=== PATIENT | male | born 1940 | race Caucasian/White ===

== ENCOUNTER → 2016-06-25 | Outpatient (CLI) | payer MEDICARE, BC ==
[2016-06-25 07:32] LABS: ALT 34 U/L (21-72); AST 22 U/L (17-59); Cholesterol 114 mg/dL (<200); HDL Cholesterol 45 mg/dL (40-60); Triglycerides 73 mg/dL (<150)
== END | disposition home or self-care (01) ==
LOC: LABWHC1 06:40
PROVIDERS: ATTEND Internal Medicine Interventional Cardiology
DX: E78.2 Mixed hyperlipidemia (principal)
CPT/HCPCS: 36415; 80061; 84450; 84460

== ENCOUNTER → 2017-01-19 | Outpatient (CLI) | payer MEDICARE, BC ==
[2017-01-19 08:03] LABS: ALT 26 U/L (21-72); AST 20 U/L (17-59); Alkaline Phosphatase 56 U/L (38-126); Anion Gap 7 mmol/L; Blood Urea Nitrogen 22 mg/dL (9-20); Calcium 9.1 mg/dL (8.4-10.2); Carbon Dioxide 27 mmol/L (22-30); Chloride 108 mmol/L (98-107); Cholesterol 116 mg/dL (<200); Glucose 94 mg/dL (74-99); HDL Cholesterol 42 mg/dL (40-60); Non-African American GFR(MDRD) >60 (>60 ml/min/1.73 sqM); Potassium 4.2 mmol/L (3.5-5.1); Sodium 142 mmol/L (137-145); Total Bilirubin 0.4 mg/dL (0.2-1.3); Total Protein 6.3 g/dL (6.3-8.2)
== END | disposition home or self-care (01) ==
LOC: LABWHC1 06:51
PROVIDERS: ATTEND Internal Medicine Interventional Cardiology
DX: E78.2 Mixed hyperlipidemia (principal)
CPT/HCPCS: 36415; 80053; 80061

== ENCOUNTER → 2017-11-16 | Outpatient (CLI) | payer MEDICARE, BC ==
[2017-11-16 08:44] LABS: ALT 32 U/L (21-72); AST 26 U/L (17-59); Cholesterol 120 mg/dL (<200); HDL Cholesterol 33 mg/dL (40-60); LDL Cholesterol,Calculated 54 mg/dL (0-99); Triglycerides 167 mg/dL (<150)
== END | disposition home or self-care (01) ==
LOC: LABWHC1 07:34
PROVIDERS: ATTEND Internal Medicine Interventional Cardiology
DX: E78.2 Mixed hyperlipidemia (principal)
CPT/HCPCS: 36415; 80061; 84450; 84460

== ENCOUNTER → 2018-06-13 | Outpatient (CLI) | payer MEDICARE ==
[2018-06-13 16:33] LABS: Albumin 4.3 g/dL (3.80-4.90); Albumin/Globulin Ratio 2.26 (1.60-3.17); Anion Gap 10.4 mmol/L (4.00-12.00); Calcium 9.2 mg/dL (8.7-10.3); Carbon Dioxide 26.6 mmol/L (21.6-31.8); Globulin 1.9 g/dL (1.6-3.3); LDL Cholesterol,Calculated 55.4 mg/dL (0.0-131.0); Total Bilirubin 0.6 mg/dL (0.2-1.2); Total Protein 6.2 g/dL (6.2-8.2); VLDL Calculation 27.6 mg/dL (5.00-40.00)
== END | disposition home or self-care (01) ==
LOC: LABWHC1 07:23
PROVIDERS: ATTEND Internal Medicine Interventional Cardiology
DX: E78.2 Mixed hyperlipidemia (principal)
CPT/HCPCS: 36415; 80053; 80061

== ENCOUNTER → 2019-01-05 | Outpatient (CLI) | payer MEDICARE ==
[2019-01-05 12:14] LABS: Chol/HDL Ratio 3.14; LDL Cholesterol,Calculated 56.8 mg/dL (0.0-131.0); VLDL Calculation 20.2 mg/dL (5.00-40.00)
== END | disposition home or self-care (01) ==
LOC: LABWHC1 07:12
PROVIDERS: ATTEND Nurse Practitioner Adult Health
DX: E78.2 Mixed hyperlipidemia (principal)
CPT/HCPCS: 36415; 80061; 84450; 84460

== ENCOUNTER → 2019-07-13 | Outpatient (CLI) | payer MEDICARE ==
[2019-07-13 17:13] LABS: African American GFR (CKD) 94.5 (60.0-200.0); Albumin 4.2 g/dL (3.80-4.90); Albumin/Globulin Ratio 1.83 (1.60-3.17); Anion Gap 9.4 mmol/L (4.00-12.00); Calcium 9.2 mg/dL (8.7-10.3); Carbon Dioxide 28.6 mmol/L (21.6-31.8); Chol/HDL Ratio 3.5; Globulin 2.3 g/dL (1.6-3.3); LDL Cholesterol,Calculated 65.2 mg/dL (0.0-131.0); Non-African American GFR(CKD) 81.5 (60.0-200.0); Potassium 4.5 mmol/L (3.5-5.5); Total Bilirubin 0.8 mg/dL (0.3-1.2); Total Protein 6.5 g/dL (6.2-8.2); VLDL Calculation 24.8 mg/dL (5.00-40.00)
== END | disposition home or self-care (01) ==
LOC: LABWHC1 08:02
PROVIDERS: ATTEND Nurse Practitioner Adult Health
DX: E78.2 Mixed hyperlipidemia (principal); I10 Essential (primary) hypertension
CPT/HCPCS: 36415; 80053; 80061

== ENCOUNTER → 2020-01-16 | Outpatient (CLI) | payer MEDICARE ==
[2020-01-16 15:18] LABS: Chol/HDL Ratio 3.32; LDL Cholesterol,Calculated 64.8 mg/dL (0.0-131.0); VLDL Calculation 23.2 mg/dL (5.00-40.00)
== END | disposition home or self-care (01) ==
LOC: LABWHC1 08:05
PROVIDERS: ATTEND Nurse Practitioner Adult Health
DX: E78.2 Mixed hyperlipidemia (principal)
CPT/HCPCS: 36415; 80061

== ENCOUNTER → 2020-07-11 | Outpatient (CLI) | payer MEDICARE ==
[2020-07-11 11:48] LABS: African American GFR (CKD) 73.6 (60.0-200.0); Albumin 4.4 g/dL (3.80-4.90); Albumin/Globulin Ratio 2.1 (1.60-3.17); Anion Gap 7.8 mmol/L (4.00-12.00); BUN/Creat Ratio 14.55 Ratio (12.00-20.00); Carbon Dioxide 29.2 mmol/L (21.6-31.8); Chol/HDL Ratio 3.43; Globulin 2.1 g/dL (1.6-3.3); LDL Cholesterol,Calculated 66.4 mg/dL (0.0-131.0); Non-African American GFR(CKD) 63.5 (60.0-200.0); Potassium 4.1 mmol/L (3.5-5.5); Total Bilirubin 0.6 mg/dL (0.3-1.2); Total Protein 6.5 g/dL (6.2-8.2); VLDL Calculation 23.6 mg/dL (5.00-40.00)
== END | disposition home or self-care (01) ==
LOC: LABWHC1 07:00
PROVIDERS: ATTEND Internal Medicine Interventional Cardiology
DX: E78.2 Mixed hyperlipidemia (principal)
CPT/HCPCS: 36415; 80053; 80061

== ENCOUNTER → 2020-10-16 | Outpatient (CLI) | payer MEDICARE ==
[2020-10-16 14:44] LABS: Chol/HDL Ratio 3.49; LDL Cholesterol,Calculated 68.2 mg/dL (0.0-131.0); VLDL Calculation 18.8 mg/dL (5.00-40.00)
== END | disposition home or self-care (01) ==
LOC: LABWHC1 06:55
PROVIDERS: ATTEND Nurse Practitioner Adult Health
DX: E78.2 Mixed hyperlipidemia (principal)
CPT/HCPCS: 36415; 80061; 84450; 84460

== ENCOUNTER → 2020-11-25 | Outpatient (CLI) | payer MEDICARE ==
--- NOTE | 2020-11-25 13:03 | CT ---
EXAMINATION TYPE: CT head without contrast CT angio head DATE OF EXAM: 11/25/2020 COMPARISON: 10/29/2015 HISTORY: 80-year-old male I62.9, Nontraumatic intracranial hemorrhage TECHNIQUE: Contiguous axial scanning of the head performed without and with IV Contrast, patient inje cted with 100 mL of Isovue 370. Coronal/sagittal MIP reconstructions performed. 3-D reconstructions g enerated on a dedicated independent workstation. CT DLP: 2317 mGycm Automated exposure control for dose reduction was used. FINDINGS: NONCONTRAST CT HEAD: Initial noncontrast images of the head are mildly limited by motion. Moderate patchy periventricular white matter hypodensities. There is slight 3 mm of prominence to the extra-axial space along the left lateral convexity, for exa mple, refer to axial image 34. Otherwise, no evidence for acute intracranial hemorrhage, acute ischemic change, mass, mass effect, o r midline shift. No effacement of cerebral sulci or basal subarachnoid cisterns. Osorio-white matter di fferentiation is maintained. CTA [place]: After contrast administration, we note a dominant right vertebral artery. The V4 segment left vertebr al artery becomes markedly hypoplastic after the ICA takeoff. Moderate uniform narrowing of the dista l third basilar artery. Otherwise, the vertebral and basilar arteries are patent. There are bilateral persistent origins of the posterior cerebral arteries and hypoplastic P1 se gments. Scattered mild atherosclerotic calcifications within the carotid siphons without any significant narr owing. No aneurysmal change. Dural venous sinuses are patent. The left transverse sinus is hypoplastic. Moderate mucosal thickening throughout the ethmoid air cells and trace within the sphenoid and fronta l sinuses. Mastoid air cells are well pneumatized. Visualized orbits and globes appear intact. IMPRESSION: 1. SLIGHT 3 MM OF PROMINENCE TO THE EXTRA-AXIAL SPACE ALONG THE LEFT LATERAL CONVEXITY, AXIAL IMAGE 3 4, APPEARS INCREASED FROM 2016. A TRACE CHRONIC SUBDURAL HEMATOMA VERSUS SUBDURAL HYGROMA IS DIFFICUL T TO EXCLUDE HERE. NO ACUTE INTRACRANIAL HEMORRHAGE OR OTHER ACUTE ABNORMALITY SEEN. 2. 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 3. ON CTA, THERE IS A DOMINANT RIGHT VERTEBRAL ARTERY AND PERSISTENT ORIGIN OF THE BILATERAL PO STERIOR CEREBRAL ARTERIES. THE UPPER THIRD BASILAR ARTERY SHOWS UNIFORM MODERATE NARROWING LIKELY ON A CONGENITAL BASIS. OTHERWISE, NO SIGNIFICANT STENOSIS, LARGE VESSEL INTRACRANIAL ARTERIAL OCCLUSION, OR ANEURYSMAL CHANGE IS SEEN. 4. MODERATE CHRONIC ETHMOID SINUS DISEASE. MILD WITHIN THE SPHENOID AND FRONTAL SINUSES.
== END | disposition home or self-care (01) ==
LOC: RADCTMAIN 10:23
PROVIDERS: ATTEND Psychiatry & Neurology Neurology
DX: I67.82 Cerebral ischemia (principal); J32.1 Chronic frontal sinusitis; J32.2 Chronic ethmoidal sinusitis; J32.3 Chronic sphenoidal sinusitis
CPT/HCPCS: 82565; 84520; 70496; 36415; Q9967

== ENCOUNTER → 2021-10-14 | Outpatient (CLI) | payer MEDICARE ==
[2021-10-14 10:59] LABS: ALT 19 U/L (10-49); AST 23 U/L (14-35); Chol/HDL Ratio 3.04 Ratio; LDL Cholesterol,Calculated 60.6 mg/dL (0.0-131.0); VLDL Calculation 18.58 mg/dL (5.00-40.00)
== END | disposition home or self-care (01) ==
LOC: LABWHC1 06:56
PROVIDERS: ATTEND Internal Medicine Interventional Cardiology
DX: E78.2 Mixed hyperlipidemia (principal)
CPT/HCPCS: 36415; 80061; 84450; 84460

== ENCOUNTER → 2022-01-22 | Outpatient (CLI) | payer MEDICARE ==
--- NOTE | 2022-01-22 10:41 | CT ---
EXAMINATION TYPE: CT angio head CT DLP: 2522 mGycm, Automated exposure control for dose reduction was used. DATE OF EXAM: 01/22/2022 10:28 AM COMPARISON: CT brain C-spine 10/29/2015. CLINICAL INDICATION:Male, 81 years old with history of I62.9 intracranial hemorrhage; PHH, Intracrani al hemorrhage TECHNIQUE: Axially acquired helical CT angiogram of the head was obtained before and after contrast a dministration utilizing 100 cc of Isovue-370 administered intravenously. Axial images are supplemente d with 3D reconstructions which were post-processed at an independent workstation. FINDINGS: Dental amalgam streak artifact which limits evaluation. No acute intraparenchymal hemorrhage or mass effect. Regions of low attenuation within the periventri cular white matter. Mild cerebral atrophy. The domingo-white junction is well differentiated. Cerebellum is unremarkable. Ventricular system is within normal limits. No abnormal extra-axial fluid collectio ns. No evidence of midline shift. No depressed skull fracture. Soft tissues are within normal limits. The mastoid air cells are clear. Mild scattered mucosal thickening of the ethmoid, sphenoid, maxilla ry sinuses. The ocular lenses are surgically absent. The visualized portions of the internal carotid arteries, middle cerebral arteries, anterior cerebral arteries, and posterior cerebral arteries are patent. The anterior communicating artery is hypoplast ic or absent. Mild atherosclerotic calcification of the cavernous portion of the bilateral internal c arotid arteries without significant stenosis. The basilar is patent. origin of the left WRAPPER SIZER. The left vertebral artery is hypoplastic but pat ent. The right vertebral artery is patent. IMPRESSION: 1. No evidence of high-grade stenosis or intracranial aneurysm. No acute intracranial hemorrhage. 2. Anterior commuting artery is hypoplastic or absent. 3. Hypoplastic appearance of the patent left vertebral artery. 4. Nonspecific white matter changes likely related to chronic small vessel ischemia.
== END | disposition home or self-care (01) ==
LOC: RADCTMAIN 08:15
PROVIDERS: ATTEND Psychiatry & Neurology Neurology
DX: R90.82 White matter disease, unspecified (principal); I62.9 Nontraumatic intracranial hemorrhage, unspecified
CPT/HCPCS: 82565; 84520; 70496; 36415; Q9967

== ENCOUNTER → 2022-07-17 | Outpatient (CLI) | payer MEDICARE ==
[2022-07-17 11:20] LABS: ALT 15 U/L (10-49); AST 19 U/L (14-35); African American GFR (CKD) 81.7 (60.0-200.0); Albumin 4.3 g/dL (3.8-4.9); Alkaline Phosphatase 70 U/L (41-126); BUN/Creat Ratio 19.56 Ratio (12.00-20.00); Blood Urea Nitrogen 19.5 mg/dL (9.0-27.0); Calcium 9.3 mg/dL (8.7-10.3); Carbon Dioxide 25.1 mmol/L (20.0-27.5); Chloride 106 mmol/L (96-109); Chol/HDL Ratio 2.64 Ratio; Globulin 2.2 g/dL (1.6-3.3); Glucose 97 mg/dL (70-110); LDL Cholesterol,Calculated 42.4 mg/dL (0.0-131.0); Non-African American GFR(CKD) 70.5 (60.0-200.0); Potassium 4.5 mmol/L (3.5-5.5); Sodium 143 mmol/L (135-145); Total Protein 6.5 g/dL (6.2-8.2)
== END | disposition home or self-care (01) ==
LOC: LABWHC1 07:12
PROVIDERS: ATTEND Internal Medicine Interventional Cardiology
DX: E78.2 Mixed hyperlipidemia (principal)
CPT/HCPCS: 36415; 80053; 80061

== ENCOUNTER → 2022-12-18 | Outpatient (CLI) | payer MEDICARE ==
[2022-12-18 11:39] LABS: ALT 15 U/L (10-49); AST 16 U/L (14-35); Chol/HDL Ratio 2.68 Ratio; LDL Cholesterol,Calculated 51.5 mg/dL (0.0-131.0)
== END | disposition home or self-care (01) ==
LOC: LABWHC1 06:51
PROVIDERS: ATTEND Family Medicine
DX: E78.2 Mixed hyperlipidemia (principal)
CPT/HCPCS: 36415; 80061; 84450; 84460

== ENCOUNTER → 2023-06-16 | Outpatient (CLI) | payer MEDICARE ==
[2023-06-16 11:41] LABS: ALT 12 U/L (10-49); AST 17 U/L (14-35); Albumin 4.2 g/dL (3.8-4.9); Albumin/Globulin Ratio 1.75 Ratio (1.60-3.17); Alkaline Phosphatase 77 U/L (41-126); BUN/Creat Ratio 21.73 Ratio (12.00-20.00); Blood Urea Nitrogen 23.9 mg/dL (9.0-27.0); Calcium 8.9 mg/dL (8.7-10.3); Carbon Dioxide 22.6 mmol/L (21.6-31.8); Chloride 106 mmol/L (96-109); Chol/HDL Ratio 2.78 Ratio; Globulin 2.4 g/dL (1.6-3.3); Glucose 98 mg/dL (70-110); LDL Cholesterol,Calculated 51.1 mg/dL (0.0-131.0); Potassium 4.3 mmol/L (3.5-5.5); Sodium 140 mmol/L (135-145); Total Bilirubin 0.4 mg/dL (0.3-1.2); Total Protein 6.6 g/dL (6.2-8.2); VLDL Calculation 18.12 mg/dL (5.00-40.00)
== END | disposition home or self-care (01) ==
LOC: LABWHC1 06:54
PROVIDERS: ATTEND Internal Medicine Interventional Cardiology
DX: I10 Essential (primary) hypertension (principal); E78.2 Mixed hyperlipidemia
CPT/HCPCS: 36415; 80053; 80061

== ENCOUNTER → 2024-06-15 | Outpatient (CLI) | payer MEDICARE ==
[2024-06-15 10:31] LABS: ALT 18 U/L (10-49); AST 21 U/L (14-35); Albumin 4.1 g/dL (3.8-4.9); Albumin/Globulin Ratio 1.71 Ratio (1.60-3.17); Alkaline Phosphatase 74 U/L (41-126); Blood Urea Nitrogen 20.8 mg/dL (9.0-27.0); Calcium 9.1 mg/dL (8.7-10.3); Carbon Dioxide 30.1 mmol/L (21.6-31.8); Chloride 105 mmol/L (96-109); Chol/HDL Ratio 2.36 Ratio; Globulin 2.4 g/dL (1.6-3.3); Glucose 105 mg/dL (70-110); LDL Cholesterol,Calculated 35.4 mg/dL (0.0-131.0); Potassium 4.3 mmol/L (3.5-5.5); Sodium 140 mmol/L (135-145); Total Bilirubin 0.5 mg/dL (0.3-1.2); Total Protein 6.5 g/dL (6.2-8.2); VLDL Calculation 17.06 mg/dL (5.00-40.00)
== END | disposition home or self-care (01) ==
LOC: LABWHC1 07:04
PROVIDERS: ATTEND Internal Medicine Interventional Cardiology
DX: I10 Essential (primary) hypertension (principal); E78.2 Mixed hyperlipidemia
CPT/HCPCS: 36415; 80053; 80061